=== PATIENT | male | born 1990 | race Caucasian/White ===

== ENCOUNTER 2023-04-19 15:09 | Inpatient (IN) | payer OTHER ==
[2023-04-19 16:30] VITALS: BMI 23.6
[2023-04-19] MEDS ORDERED: MAGNESIUM HYDROX 2400MG/30ML ORAL SUSPENSION 30 ML CUP PO PRN (20:13)
[2023-04-19] MEDS ORDERED: BENZONATATE 200 MG CAPSULE PO PRN (20:13)
[2023-04-19] MEDS ORDERED: NALOXONE HCL (KLOXXADO) 8 MG SPRAY NS PRN (20:13)
[2023-04-19] MEDS ORDERED: ACETAMINOPHEN 325 MG TABLET (FP) PO PRN (20:13)
[2023-04-19] MEDS ORDERED: COLLOIDAL OATMEAL 1 BAR EACH TP PRN (20:13)
[2023-04-19] MEDS ORDERED: NALOXONE HCL 0.4 MG/ML VIAL IM PRN (20:13)
[2023-04-19] MEDS ORDERED: LOPERAMIDE HCL 2 MG CAPSULE PO PRN (20:13)
[2023-04-19] MEDS ORDERED: IBUPROFEN 400 MG TABLET (FP) PO PRN (20:13)
[2023-04-19] MEDS ORDERED: IBUPROFEN 600 MG TABLET (FP) PO PRN (20:13)
[2023-04-19] MEDS ORDERED: POLYETHYLENE GLYCOL (HEALTHYLAX) 3350 17 GM PACKET PO PRN (20:13)
[2023-04-19] MEDS ORDERED: guaiFENesin 600 MG TABLET.ER (FP) PO PRN (20:13)
[2023-04-19] MEDS ORDERED: hydrOXYzine PAMOATE 25 MG CAPSULE (FP) PO PRN (20:13)
[2023-04-19] MEDS ORDERED: MAG HYDROX/AL HYDROX/SIMETH 30 ML UNIT-DOSE CUP PO PRN (20:13)
[2023-04-19] MEDS ORDERED: busPIRone HCL 5 MG TABLET PO ONE ×2 (21:00→23:15)
[2023-04-19] MEDS ORDERED: GABAPENTIN 400 MG CAPSULE PO ONE ×2 (21:00→23:15)
[2023-04-19] MEDS ORDERED: MIRTAZAPINE 15 MG TABLET (FP) PO ONE (22:00)
[2023-04-19] MEDS ORDERED: BENZTROPINE MESYLATE 1 MG TABLET PO ONE (22:00)
[2023-04-19] MEDS ORDERED: TUBERCULIN PPD 5 TU/0.1ML VIAL ID ONE ×2 (22:59→23:40)
[2023-04-19] MEDS: MELATONIN 5 MG TABLETS PO SCH (23:02)
[2023-04-19] MEDS: DOCUSATE SODIUM 100 MG CAPSULE (FP) PO SCH (23:02)
[2023-04-19] MEDS: THIAMINE HCL 100 MG TABLET (FP) PO SCH (23:03)
[2023-04-19] MEDS: BACITRACIN ZINC 15 GM TUBE TOPICAL OINTMENT TP SCH (23:06)
[2023-04-20] MEDS ORDERED: BUPRENORPHINE/NALOXONE 8 MG/2 MG FILM PACKET SL SCH ×3 (09:20→16:00)
[2023-04-20] MEDS ORDERED: PATIENT'S OWN MEDICATION (NON-FORMULARY) (Buprenorphine/Naloxone 1 EACH Film) SL SCH (10:00)
[2023-04-20] MEDS ORDERED: BUPRENORPHINE/NALOXONE 8 MG/2 MG FILM PACKET SL ONE ×3 (10:05→22:00)
[2023-04-20] MEDS: PRENATAL VITAMINS W/ FOLIC ACID TABLET (FP) PO SCH (10:42)
[2023-04-20] MEDS: BACITRACIN ZINC 15 GM TUBE TOPICAL OINTMENT TP SCH (10:42)
[2023-04-20] MEDS ORDERED: TUBERCULIN PPD 5 TU/0.1ML VIAL ID ONE (15:00)
[2023-04-21] MEDS: BACITRACIN ZINC 15 GM TUBE TOPICAL OINTMENT TP SCH ×3 (00:07→21:29)
[2023-04-21] MEDS: DOCUSATE SODIUM 100 MG CAPSULE (FP) PO SCH ×2 (00:07→21:29)
[2023-04-21] MEDS: THIAMINE HCL 100 MG TABLET (FP) PO SCH ×2 (00:07→21:29)
[2023-04-21] MEDS: MELATONIN 5 MG TABLETS PO SCH ×2 (00:07→21:29)
[2023-04-21] MEDS ORDERED: BUPRENORPHINE/NALOXONE 8 MG/2 MG FILM PACKET SL SCH (06:00)
[2023-04-21] MEDS: BUPRENORPHINE/NALOXONE 8 MG/2 MG FILM PACKET SL SCH ×3 (06:57→21:30)
[2023-04-21] MEDS: PRENATAL VITAMINS W/ FOLIC ACID TABLET (FP) PO SCH (09:47)
[2023-04-21 12:33] LABS: URINE APPEARANCE CLOUDY; URINE BILIRUBIN NEGATIVE (NEGATIVE); URINE COLOR YELLOW; URINE GLUCOSE (UA) NEGATIVE (NEGATIVE); URINE KETONE NEGATIVE (NEGATIVE); URINE LEUK ESTERASE NEGATIVE (NEGATIVE); URINE NITRITE NEGATIVE (NEGATIVE); URINE PROTEIN NEGATIVE (NEGATIVE); URINE UROBILINOGEN 0.2 mg/dL (0.2-1.0)
[2023-04-21 12:40] LABS: BASO % 0.3 % (0-2.0); EOS % 1.2 % (0-4.5); HEMATOCRIT 39.8 % (35.4-49); HEMOGLOBIN 13.5 GM/dL (11.7-16.9); LYMPH % 28.8 % (8-40); MCH 31.7 pg (25.7-33.7); MCHC 33.9 g/dl (32.0-35.9); MEAN CELL VOLUME 93.4 fl (80-96); MEAN PLT VOLUME 7.8 fl (7.5-11.1); MONO % 6.6 % (3.8-10.2); NEUT % 63.1 % (42.8-82.8); PLATELET COUNT 249 10^3/uL (134-434); RBC 4.27 M/mm3 (4.00-5.60); RDW 13.3 % (11.9-15.9); WHITE BLOOD COUNT 7.8 K/mm3 (4.0-10.0)
[2023-04-21 12:47] LABS: POTASSIUM 4.2 mmol/L (3.5-5.1)
[2023-04-21 12:50] LABS: ALBUMIN 3.7 g/dl (3.4-5.0); BLOOD UREA NITROGEN 12.9 mg/dL (7-18)
[2023-04-21 12:53] LABS: CREATININE 1.2 mg/dL (0.55-1.3)
[2023-04-21 12:54] LABS: BILIRUBIN,TOTAL 0.4 mg/dL (0.2-1); TOT PROT 6.9 g/dl (6.4-8.2)
[2023-04-21] MEDS: GABAPENTIN 400 MG CAPSULE PO SCH ×2 (13:17→21:30)
[2023-04-21] MEDS: MIRTAZAPINE 15 MG TABLET (FP) PO SCH (21:31)
[2023-04-21] MEDS: BENZTROPINE MESYLATE 1 MG TABLET PO SCH (21:31)
[2023-04-21] MEDS ORDERED: BUSPIRONE HCL 7.5 MG PO SCH (22:00)
[2023-04-22] MEDS: GABAPENTIN 400 MG CAPSULE PO SCH ×3 (06:38→22:03)
[2023-04-22] MEDS: BUPRENORPHINE/NALOXONE 8 MG/2 MG FILM PACKET SL SCH ×3 (06:38→22:03)
[2023-04-22] MEDS: PRENATAL VITAMINS W/ FOLIC ACID TABLET (FP) PO SCH (10:37)
[2023-04-22] MEDS: BACITRACIN ZINC 15 GM TUBE TOPICAL OINTMENT TP SCH ×2 (10:38→22:03)
[2023-04-22] MEDS: DOCUSATE SODIUM 100 MG CAPSULE (FP) PO SCH (22:03)
[2023-04-22] MEDS: THIAMINE HCL 100 MG TABLET (FP) PO SCH (22:03)
[2023-04-22] MEDS: MELATONIN 5 MG TABLETS PO SCH (22:03)
[2023-04-22] MEDS: BENZTROPINE MESYLATE 1 MG TABLET PO SCH (22:03)
[2023-04-22] MEDS: MIRTAZAPINE 15 MG TABLET (FP) PO SCH (22:03)
[2023-04-23] MEDS: GABAPENTIN 400 MG CAPSULE PO SCH ×3 (06:29→21:14)
[2023-04-23] MEDS: BUPRENORPHINE/NALOXONE 8 MG/2 MG FILM PACKET SL SCH ×3 (06:30→21:14)
[2023-04-23] MEDS: BACITRACIN ZINC 15 GM TUBE TOPICAL OINTMENT TP SCH (10:20)
[2023-04-23] MEDS: PRENATAL VITAMINS W/ FOLIC ACID TABLET (FP) PO SCH (10:20)
[2023-04-23] MEDS ORDERED: BACITRACIN 0.9 GM PACKET TP PRN (12:50)
[2023-04-23] MEDS ORDERED: PRENATAL VITAMINS W/ FOLIC ACID TABLET (FP) PO PRN (12:50)
[2023-04-23] MEDS: BENZOCAINE/MENTHOL (CHLORASEPTIC ) LOZENGE MM PRN ×2 (13:36→18:30)
[2023-04-23] MEDS: DOCUSATE SODIUM 100 MG CAPSULE (FP) PO SCH (21:14)
[2023-04-23] MEDS: MIRTAZAPINE 15 MG TABLET (FP) PO SCH (21:14)
[2023-04-23] MEDS: MELATONIN 5 MG TABLETS PO SCH (21:14)
[2023-04-23] MEDS: BENZTROPINE MESYLATE 1 MG TABLET PO SCH (21:14)
[2023-04-23] MEDS: THIAMINE HCL 100 MG TABLET (FP) PO SCH (21:14)
[2023-04-24] MEDS: BUPRENORPHINE/NALOXONE 8 MG/2 MG FILM PACKET SL SCH ×2 (06:50→13:06)
[2023-04-24] MEDS: GABAPENTIN 400 MG CAPSULE PO SCH ×2 (06:50→13:06)
[2023-04-24] MEDS: BENZOCAINE/MENTHOL (CHLORASEPTIC ) LOZENGE MM PRN (06:54)
[2023-04-24 07:25] VITALS: BP 114/75; PULSE 78; RESP 17; TEMP 97.7
[2023-04-24] MEDS ORDERED: NICOTINE POLACRILEX 2 MG GUM BUC PRN (10:39)
[2023-04-24] MEDS ORDERED: guaiFENesin 600 MG TABLET.ER (FP) PO SCH (10:45)
[2023-04-24] MEDS ORDERED: NICOTINE 14 MG/24 HOURS TOPICAL PATCH TD SCH (10:45)
[2023-04-24] MEDS ORDERED: PALIPERIDONE PALMITATE (INVEGA) 117 MG/0.75 ML SYRINGE IM ONE (11:00)
== END 2023-04-24 15:07 | disposition home or self-care (01) | DRG 772 ==
LOC: YASAS 15:09 → Y3E 20:26 → Y3W 20:31 → Y3E 20:32
PROVIDERS: ADMIT Allergy & Immunology; ATTEND Psychiatry & Neurology Pain Medicine
PROC: HZ42ZZZ Group Counseling for Substance Abuse Treatment, Cognitive-Behavioral (ICD-10-PCS; principal; 2023-04-19)
DX: F11.20 Opioid dependence, uncomplicated (principal); F14.20 Cocaine dependence, uncomplicated; F10.20 Alcohol dependence, uncomplicated; F17.210 Nicotine dependence, cigarettes, uncomplicated; F25.9 Schizoaffective disorder, unspecified; F41.9 Anxiety disorder, unspecified; F32.A Depression, unspecified; J02.9 Acute pharyngitis, unspecified
CPT/HCPCS: 36415; 80053; 81003; 85025; 87635; J2426